=== PATIENT | female | born 1975 | race American Indian/Alaskan Native ===

== ENCOUNTER 2017-03-12 08:23 | Inpatient (IN) | payer BC ==
[2017-03-12 09:30] LABS: Basophils % (Auto) 1.2 % (0.0-1.8); Eosinophils % (Auto) 4.4 % (0.0-4.3); Hematocrit 26.1 % (30.3-42.9); Hemoglobin 7.9 gm/dl (10.1-14.3); Mean Corpuscular HGB Conc 30 % (30-34); Platelet Count 304 K/mm3 (140-440); Red Blood Count 3.99 M/mm3 (3.65-5.03); White Blood Count 6.3 K/mm3 (4.5-11.0)
[2017-03-12 09:40] LABS: Mean Corpuscular Hemoglobin 20 pg (28-32); Mean Corpuscular Volume 65 fl (79-97)
[2017-03-12 10:02] LABS: Anion Gap 21 mmol/L; BUN/Creatinine Ratio 26; Blood Urea Nitrogen 13 mg/dL (7-17); Calcium 9.6 mg/dL (8.4-10.2); Carbon Dioxide 23 mmol/L (22-30); Chloride 103.7 mmol/L (98-107); Glucose 87 mg/dL (65-100); Sodium 144 mmol/L (137-145)
[2017-03-12 10:06] LABS: Bacteria,Urine 1+ /HPF (Negative); Bilirubin,Urine NEG (Negative); Blood,Urine NEG (Negative); Ketones,Urine 20 mg/dL (Negative); Leukocyte Esterase,Urine LG (Negative); Mucus,Urine 3+ /HPF; Nitrite,Urine NEG (Negative)
[2017-03-12] MEDS ORDERED: TYLENOL PO ONE (10:38)
[2017-03-12] MEDS ORDERED: REGLAN IV ONE (10:38)
[2017-03-12] MEDS ORDERED: BENADRYL IV ONE (10:38)
--- NOTE | 2017-03-12 10:40 | Emergency Department Report ---
ED General Adult HPI - General Chief complaint: Chest Pain Stated complaint: CHEST PAIN/LEFT SIDE NUMBNESS Time Seen by Provider: 03/12/17 10:08 Source: patient, RN notes reviewed, old records reviewed Mode of arrival: Ambulatory Limitations: No Limitations - History of Present Illness Initial comments: This is a 41-year-old female. The patient presents to the ER with 2 complaints. Her first complaint is left-sided chest pain. Chest pain does not radiate to the back, arms or neck. There is no shortness of breath, vomiting or diaphoresis. The chest pain has been present since yesterday. It does not have exacerbating or relieving factors. No DVT or pulmonary embolus risk factors. Next complaint is left-sided numbness. It is in the left arm, left body, left leg. It is painless. It started yesterday. It is constant. It does not radiate anywhere. He does not have exacerbating or relieving factors. -: Gradual Location: chest, left, upper extremity, lower extremity Severity scale (0 -10): 7 Quality: aching (chest pain is aching) Consistency: constant Improves with: none Worsens with: none Associated Symptoms: chest pain. denies: confusion, cough, diaphoresis, fever/ chills, loss of appetite, malaise, nausea/vomiting, rash, seizure, shortness of breath, syncope, weakness - Related Data Previous Rx's Medication Instructions Recorded Last Taken Type Ferrous Sulfate [Iron] 325 mg PO BID #60 tablet 01/22/17 Unknown Rx Sulfamethoxazole/Trimethoprim 1 each PO Q12H #6 tablet 01/22/17 Unknown Rx [Bactrim 400-80 mg Tablet] Allergies Allergy/AdvReac Type Severity Reaction Status Date / Time hydrocodone Allergy PASS OUT Verified 02/13/15 14:07 ED Review of Systems ROS: Stated complaint: CHEST PAIN/LEFT SIDE NUMBNESS Other details as noted in HPI Constitutional: malaise. denies: fever Eyes: denies: vision change ENT: congestion Respiratory: denies: shortness of breath Cardiovascular: chest pain Gastrointestinal: denies: vomiting Genitourinary: as per HPI Musculoskeletal: denies: back pain Neurological: weakness, numbness, paresthesias Psychiatric: as per HPI ED Past Medical Hx - Past Medical History Hx Hypertension: No Hx Heart Attack/AMI: No Hx Congestive Heart Failure: No Hx Diabetes: No Hx Deep Vein Thrombosis: No Hx Pulmonary Embolism: No Hx Liver Disease: No Hx Renal Disease: No Hx Sickle Cell Disease: No Hx Arthritis: No Hx Headaches / Migraines: Yes Hx Seizures: No Hx Kidney Stones: No Hx Asthma: No Hx COPD: No Hx Tuberculosis: No Hx Dementia: No Hx HIV: No Additional medical history: VERTIGO - Surgical History Hx Coronary Stent: No Hx Pacemaker: No Hx Internal Defibrillator: No Additional Surgical History: UMBILICAL HERNIA REPAIR - Social History Smoking Status: Never Smoker Substance Use Type: Alcohol - Medications Home Medications: Home Medications Medication Instructions Recorded Confirmed Last Taken Type Ferrous Sulfate [Iron] 325 mg PO BID #60 tablet 01/22/17 Unknown Rx Sulfamethoxazole/Trimethoprim 1 each PO Q12H #6 tablet 01/22/17 Unknown Rx [Bactrim 400-80 mg Tablet] ED Physical Exam - General Limitations: No Limitations General appearance: alert, in no apparent distress - Head Head exam: Present: atraumatic, normocephalic - Eye Eye exam: Present: normal appearance, PERRL, EOMI, other (visual acuity intact to finger counting, color perception, reading at a close distance). Absent: nystagmus - ENT ENT exam: Present: normal exam, normal orophraynx, mucous membranes moist, normal external ear exam - Neck Neck exam: Present: normal inspection, full ROM - Respiratory Respiratory exam: Present: normal lung sounds bilaterally. Absent: respiratory distress, chest wall tenderness - Cardiovascular Cardiovascular Exam: Present: regular rate, normal rhythm, normal heart sounds. Absent: systolic murmur, diastolic murmur, rubs, gallop - GI/Abdominal GI/Abdominal exam: Present: soft, normal bowel sounds. Absent: distended, tenderness, guarding, rebound, rigid, pulsatile mass - Extremities Exam Extremities exam: Present: normal inspection, full ROM, normal capillary refill. Absent: pedal edema, joint swelling - Back Exam Back exam: Present: normal inspection, full ROM. Absent: tenderness, CVA tenderness (R), paraspinal tenderness, vertebral tenderness - Neurological Exam Neurological exam: Present: alert, oriented X3, CN II-XII intact, normal gait, motor sensory deficit (there is decreased sensation to light touch and pain in the left upper extremity, left lower extremity), other (55 strength upper and lower extremities bilaterally. Sensation intact to light touch right upper, right lower extremity) - Psychiatric Psychiatric exam: Present: normal affect, normal mood - Skin Skin exam: Present: warm, dry, intact, normal color. Absent: rash ED Course Vital Signs 03/12/17 03/12/17 08:49 10:30 Temperature 97.9 F Pulse Rate 84 Respiratory 20 16 Rate Blood Pressure 116/68 O2 Sat by Pulse 100 Oximetry - Reevaluation(s) Reevaluation #1: 03/12/17 13:07 Patient's old medical records reviewed, the anemia appears to be chronic, and she does not require an emergent packed red blood cell transfusion. The patient does not endorse any urinary symptoms to me, therefore she does not require antibiotic therapy at this time. Sterile pyuria is reviewed and appreciated, may be asymptomatic bacteriuria. ED Medical Decision Making - Lab Data Result diagrams: 03/12/17 09:03 03/12/17 09:03 Vital Signs 03/12/17 03/12/17 08:49 10:30 Temperature 97.9 F Pulse Rate 84 Respiratory 20 16 Rate Blood Pressure 116/68 O2 Sat by Pulse 100 Oximetry Lab Results 03/12/17 03/12/17 03/12/17 Range/Units 09:03 09:03 09:25 WBC 6.3 (4.5-11.0) K/mm3 RBC 3.99 (3.65-5.03) M/mm3 Hgb 7.9 L (10.1-14.3) gm/dl Hct 26.1 L (30.3-42.9) % MCV 65 L (79-97) fl MCH 20 L (28-32) pg MCHC 30 (30-34) % RDW 19.0 H (13.2-15.2) % Plt Count 304 (140-440) K/mm3 Lymph % (Auto) 29.8 (13.4-35.0) % [place] % (Auto) 7.2 (0.0-7.3) % Eos % (Auto) 4.4 H (0.0-4.3) % Baso % (Auto) 1.2 (0.0-1.8) % Lymph # 1.9 (1.2-5.4) K/mm3 [place] # 0.4 (0.0-0.8) K/mm3 Eos # 0.3 (0.0-0.4) K/mm3 Baso # 0.1 (0.0-0.1) K/mm3 Seg Neutrophils % 57.4 (40.0-70.0) % Seg Neutrophils # 3.6 (1.8-7.7) K/mm3 Sodium 144 (137-145) mmol/L Potassium 4.0 (3.6-5.0) mmol/L Chloride 103.7 (98-107) mmol/L Carbon Dioxide 23 (22-30) mmol/L Anion Gap 21 mmol/L BUN 13 (7-17) mg/dL Creatinine 0.5 L (0.7-1.2) mg/dL Estimated GFR > 60 ml/min BUN/Creatinine Ratio 26 % Glucose 87 (65-100) mg/dL Calcium 9.6 (8.4-10.2) mg/dL Troponin T < 0.010 (0.00-0.029) ng/mL Urine Color Yellow (Yellow) Urine Turbidity Clear (Clear) Urine pH 6.0 (5.0-7.0) Ur Specific [place] 1.028 (1.003-1.030) Urine Protein 30 mg/dl (Negative) mg/dL Urine Glucose (UA) Neg (Negative) mg/dL Urine Ketones 20 (Negative) mg/dL Urine Blood Neg (Negative) Urine Nitrite Neg (Negative) Urine Bilirubin Neg (Negative) Urine Urobilinogen 4.0 (<2.0) mg/dL Ur Leukocyte Esterase Lg (Negative) Urine WBC (Auto) 43.0 H (0.0-6.0) /HPF Urine RBC (Auto) 21.0 (0.0-6.0) /HPF U Epithel Cells (Auto) 2.0 (0-13.0) /HPF Urine Bacteria (Auto) 1+ (Negative) /HPF Urine Mucus 3+ /HPF Urine HCG, Qual (Negative) 03/12/17 03/12/17 Range/Units 10:38 11:54 WBC (4.5-11.0) K/mm3 RBC (3.65-5.03) M/mm3 Hgb (10.1-14.3) gm/dl Hct (30.3-42.9) % MCV (79-97) fl MCH (28-32) pg MCHC (30-34) % RDW (13.2-15.2) % Plt Count (140-440) K/mm3 Lymph % (Auto) (13.4-35.0) % [place] % (Auto) (0.0-7.3) % Eos % (Auto) (0.0-4.3) % Baso % (Auto) (0.0-1.8) % Lymph # (1.2-5.4) K/mm3 [place] # (0.0-0.8) K/mm3 Eos # (0.0-0.4) K/mm3 Baso # (0.0-0.1) K/mm3 Seg Neutrophils % (40.0-70.0) % Seg Neutrophils # (1.8-7.7) K/mm3 Sodium (137-145) mmol/L Potassium (3.6-5.0) mmol/L Chloride (98-107) mmol/L Carbon Dioxide (22-30) mmol/L Anion Gap mmol/L BUN (7-17) mg/dL Creatinine (0.7-1.2) mg/dL Estimated GFR ml/min BUN/Creatinine Ratio % Glucose (65-100) mg/dL Calcium (8.4-10.2) mg/dL Troponin T < 0.010 (0.00-0.029) ng/mL Urine Color (Yellow) Urine Turbidity (Clear) Urine pH (5.0-7.0) Ur Specific [place] (1.003-1.030) Urine Protein (Negative) mg/dL Urine Glucose (UA) (Negative) mg/dL Urine Ketones (Negative) mg/dL Urine Blood (Negative) Urine Nitrite (Negative) Urine Bilirubin (Negative) Urine Urobilinogen (<2.0) mg/dL Ur Leukocyte Esterase (Negative) Urine WBC (Auto) (0.0-6.0) /HPF Urine RBC (Auto) (0.0-6.0) /HPF U Epithel Cells (Auto) (0-13.0) /HPF Urine Bacteria (Auto) (Negative) /HPF Urine Mucus /HPF Urine HCG, Qual Negative (Negative) - EKG Data -: EKG Interpreted by Fl - EKG Data 03/12/17 13:04 Sinus, 71 bpm, normal intervals, normal axis, not morphologically consistent with ST elevation myocardial infarction; appears unchanged from prior EKG from December 2016. - Radiology Data Radiology results: report reviewed, image reviewed CT scan of the chest, CT scan of the brain, interpreted by radiology: Negative for acute intracranial findings, negative for pulmonary embolus, negative for dissection - Medical Decision Making Differential diagnosis, including but not limited to: Aortic dissection, pulmonary embolus, acute coronary syndrome, radiculopathy, stroke, conversion disorder Assessment and plan: 41-year-old female with 2 complaints. Chest pain atypical, troponin negative 2, CT scan of the chest is negative for pulmonary embolus, negative for aortic catastrophe/dissection. Patient has an NIH score of 1, symptoms have her present since yesterday, therefore she is not a TPA candidate. Given all of her findings and complaints are sensory in nature , I did not put the patient requires emergent CT angiogram of the head and neck , especially as she required a CT scan of the chest to exclude aortic catastrophe given her complaint of chest pain and neurologic symptoms. Patient walked into the ER in no distress, had equal pulses in the bilateral upper and lower extremities, and was very well-appearing. Her headache was treated with appropriate medication, and patient will be admitted for further inpatient evaluation and workup for her chest pain and neurologic symptoms. The case was presented to the Hospital physician, Dr. Callaway, who accepted the patient to the medical service for the aforementioned. Critical care attestation.: If time is entered above; I have spent that time in minutes in the direct care of this critically ill patient, excluding procedure time. ED Disposition Clinical Impression: Chest pain, Left sided numbness Disposition: OP ADMIT IP TO THIS HOSP Is pt being admited?: Yes Does the pt Need Aspirin: Yes Condition: Good Instructions: Chest Pain (ED) Referrals: PRIMARY CARE, [Primary Care Provider] - 3-5 Days
[2017-03-12] MEDS ORDERED: NACL ONE (10:46)
--- NOTE | 2017-03-12 11:48 | Cat Scan Report ---
CT HEAD WITHOUT CONTRAST: 03/12/17 08:23:00 CLINICAL: Headache and dizziness with left-sided numbness. TECHNIQUE: 2.5-mm noncontrast scans. COMPARISON:01/19/17 FINDINGS: The ventricles are normal but the frontal lobe sulci and temporal lobe sulci are large for age. However, this is not changed since the last exam. No abnormal density. No mass or mass effect. No hemorrhage, edema or extra-axial collection. Stable pansinusitis with near-complete opacification of the sinuses. Normal orbits and soft tissues. The calvarium and skull base are intact. IMPRESSION: Pansinusitis. No evidence of acute/subacute infarct or hemorrhage. Mild cortical atrophy.
--- NOTE | 2017-03-12 11:50 | Cat Scan Report ---
CT CHEST WITH CONTRAST: 03/12/17 10:38:00 CLINICAL: Chest pain and neurologic symptoms. TECHNIQUE: PE protocol with volumetric acquisition and 1.25 mm scan reconstructions after the uneventful intravenous injection of 100 cc Omnipaque 350. Consent was obtained prior to the administration of contrast. FINDINGS: Good opacification of the pulmonary arteries and no pulmonary artery thrombus identified. Normal heart and aorta. The lungs are normally expanded and clear. No airspace disease or pleural effusion. Normal thyroid, trachea and esophagus. The upper abdomen is normal. The bones and soft tissues are normal. IMPRESSION: Normal study. No pulmonary embolus.
[2017-03-12] MEDS ORDERED: BABY ASPIRIN PO ONE (13:06)
--- NOTE | 2017-03-12 23:42 | History and Physical Report ---
History of Present Illness Date of examination: 03/12/17 Date of admission: 03/12/17 15:05 Chief complaint: CC L chest pain and L side numbness History of present illness: History of Present Illness This is a 41-year-old female presents to the ER for left-sided chest pain. Chest pain does not radiate to the back, arms or neck. There is no shortness of breath, vomiting or diaphoresis. The chest pain has been present since yesterday. It does not have exacerbating or relieving factors. No DVT or pulmonary embolus risk factors. Also c/0 left-sided numbness. It is in the left arm, left body, left leg. It is painless. It started yesterday. It is constant. It does not radiate anywhere. Does not have exacerbating or relieving factors. -: Gradual Location: chest, left, upper extremity, lower extremity Severity scale (0 -10): 7 Quality: aching (chest pain is aching) Consistency: constant Improves with: none Worsens with: none Associated Symptoms: chest pain. denies: confusion, cough, diaphoresis, fever/ chills, loss of appetite, malaise, nausea/vomiting, rash, seizure, shortness of breath, syncope, weakness Past Medical History Hx Headaches / Migraines: Yes Additional medical history: VERTIGO Surgical History UMBILICAL HERNIA REPAIR Social History Smoking Status: Never Smoker Substance Use Type: Alcohol Fam Hx Htn Medications Home Medications: Home Medications Medication Instructions Recorded Confirmed Last Taken Type Ferrous Sulfate [Iron] 325 mg PO BID #60 tablet 01/22/17 Unknown Rx Sulfamethoxazole/Trimethoprim 1 each PO Q12H #6 tablet 01/22/17 Unknown Rx [Bactrim 400-80 mg Tablet] Review of Systems Stated complaint: CHEST PAIN/LEFT SIDE NUMBNESS Other details as noted in HPI Constitutional: malaise. denies: fever Eyes: denies: vision change ENT: congestion Respiratory: denies: shortness of breath Cardiovascular: chest pain Gastrointestinal: denies: vomiting Genitourinary: as per HPI Musculoskeletal: denies: back pain Neurological: weakness, numbness, paresthesias Psychiatric: as per HPI Medications and Allergies Allergies Allergy/AdvReac Type Severity Reaction Status Date / Time hydrocodone Allergy PASS OUT Verified 02/13/15 14:07 Home Medications Medication Instructions Recorded Confirmed Last Taken Type No Known Home Medications [No 03/12/17 03/12/17 Unknown History Reported Home Medications] Exam - Constitutional Vitals: Temp Pulse Resp BP Pulse Ox 97.9 F 127 H 18 97/59 68 L 03/12/17 20:22 03/12/17 20:22 03/12/17 22:00 03/12/17 20:22 03/12/17 20:22 General appearance: Present: no acute distress, well-nourished - EENT Eyes: Present: PERRL ENT: hearing intact, clear oral mucosa - Neck Neck: Present: supple, normal ROM - Respiratory Respiratory effort: normal Respiratory: bilateral: CTA - Cardiovascular Heart rate: 80 Rhythm: regular Heart Sounds: Present: S1 & S2. Absent: rub, click - Extremities Extremities: no ischemia, pulses intact, pulses symmetrical, No edema Peripheral Pulses: within normal limits - Abdominal General gastrointestinal: Present: soft, non-tender, non-distended, normal bowel sounds Female genitourinary: Present: normal - Rectal Rectal Exam: deferred - Integumentary Integumentary: Present: clear, warm, dry - Musculoskeletal Musculoskeletal: gait normal, strength equal bilaterally - Psychiatric Psychiatric: appropriate mood/affect, intact judgment & insight - Neurologic Neurologic: CNII-XII intact, moves all extremities, other (No focal deficits) Results - Labs CBC & Chem 7: 03/12/17 09:03 03/12/17 09:03 Labs: Laboratory Last Values WBC 6.3 K/mm3 (4.5-11.0) 03/12/17 09:03 RBC 3.99 M/mm3 (3.65-5.03) 03/12/17 09:03 Hgb 7.9 gm/dl (10.1-14.3) L 03/12/17 09:03 Hct 26.1 % (30.3-42.9) L 03/12/17 09:03 MCV 65 fl (79-97) L 03/12/17 09:03 MCH 20 pg (28-32) L 03/12/17 09:03 MCHC 30 % (30-34) 03/12/17 09:03 RDW 19.0 % (13.2-15.2) H 03/12/17 09:03 Plt Count 304 K/mm3 (140-440) 03/12/17 09:03 Lymph % (Auto) 29.8 % (13.4-35.0) 03/12/17 09:03 [place] % (Auto) 7.2 % (0.0-7.3) 03/12/17 09:03 Eos % (Auto) 4.4 % (0.0-4.3) H 03/12/17 09:03 Baso % (Auto) 1.2 % (0.0-1.8) 03/12/17 09:03 Lymph # 1.9 K/mm3 (1.2-5.4) 03/12/17 09:03 [place] # 0.4 K/mm3 (0.0-0.8) 03/12/17 09:03 Eos # 0.3 K/mm3 (0.0-0.4) 03/12/17 09:03 Baso # 0.1 K/mm3 (0.0-0.1) 03/12/17 09:03 Seg Neutrophils % 57.4 % (40.0-70.0) 03/12/17 09:03 Seg Neutrophils # 3.6 K/mm3 (1.8-7.7) 03/12/17 09:03 Sodium 144 mmol/L (137-145) 03/12/17 09:03 Potassium 4.0 mmol/L (3.6-5.0) 03/12/17 09:03 Chloride 103.7 mmol/L (98-107) 03/12/17 09:03 Carbon Dioxide 23 mmol/L (22-30) 03/12/17 09:03 Anion Gap 21 mmol/L 03/12/17 09:03 BUN 13 mg/dL (7-17) 03/12/17 09:03 Creatinine 0.5 mg/dL (0.7-1.2) L 03/12/17 09:03 Estimated GFR > 60 ml/min 03/12/17 09:03 BUN/Creatinine Ratio 26 % 03/12/17 09:03 Glucose 87 mg/dL (65-100) 03/12/17 09:03 Calcium 9.6 mg/dL (8.4-10.2) 03/12/17 09:03 Troponin T < 0.010 ng/mL (0.00-0.029) 03/12/17 14:25 Urine Color Yellow (Yellow) 03/12/17 09:25 Urine Turbidity Clear (Clear) 03/12/17 09:25 Urine pH 6.0 (5.0-7.0) 03/12/17 09:25 Ur Specific [place] 1.028 (1.003-1.030) 03/12/17 09:25 Urine Protein 30 mg/dl mg/dL (Negative) 03/12/17 09:25 Urine Glucose (UA) Neg mg/dL (Negative) 03/12/17 09:25 Urine Ketones 20 mg/dL (Negative) 03/12/17 09:25 Urine Blood Neg (Negative) 03/12/17 09:25 Urine Nitrite Neg (Negative) 03/12/17 09:25 Urine Bilirubin Neg (Negative) 03/12/17 09:25 Urine Urobilinogen 4.0 mg/dL (<2.0) 03/12/17 09:25 Ur Leukocyte Esterase Lg (Negative) 03/12/17 09:25 Urine WBC (Auto) 43.0 /HPF (0.0-6.0) H 03/12/17 09:25 Urine RBC (Auto) 21.0 /HPF (0.0-6.0) 03/12/17 09:25 U Epithel Cells (Auto) 2.0 /HPF (0-13.0) 03/12/17 09:25 Urine Bacteria (Auto) 1+ /HPF (Negative) 03/12/17 09:25 Urine Mucus 3+ /HPF 03/12/17 09:25 Urine HCG, Qual Negative (Negative) 03/12/17 10:38 Short CBC 03/12/17 Range/Units 09:03 WBC 6.3 (4.5-11.0) K/mm3 Hgb 7.9 L (10.1-14.3) gm/dl Hct 26.1 L (30.3-42.9) % Plt Count 304 (140-440) K/mm3 BMP 03/12/17 09:03 Sodium 144 Potassium 4.0 Chloride 103.7 Carbon Dioxide 23 BUN 13 Creatinine 0.5 L Glucose 87 Calcium 9.6 Cardiac Enzymes 03/12/17 03/12/17 03/12/17 Range/Units 09:03 11:54 14:25 Troponin T < 0.010 < 0.010 < 0.010 (0.00-0.029) ng/mL Urine 03/12/17 Range/Units 09:25 Urine Color Yellow (Yellow) Urine pH 6.0 (5.0-7.0) Ur Specific [place] 1.028 (1.003-1.030) Urine Protein 30 mg/dl (Negative) mg/dL Urine Glucose (UA) Neg (Negative) mg/dL - Imaging and Cardiology EKG: report reviewed (Nsr 66/min) CT scan - chest: report reviewed (NAF) CT Scan - head: report reviewed (Pansinusitis) Assessment and Plan Advance Directives: Yes (Full code) VTE prophylaxis?: Chemical Plan of care discussed with patient/family: Yes - Patient Problems (1) Chest pain Current Visit: Yes Status: Acute Qualifiers: Chest pain type: unspecified Qualified Code(s): R07.9 - Chest pain, unspecified Plan to address problem: Chest pain w/u SerialCardiac enzymes and Lexiscan (2) TIA (transient ischemic attack) Current Visit: Yes Status: Acute Qualifiers: Transient cerebral ischemia type: unspecified Qualified Code(s): G45.9 - Transient cerebral ischemic attack, unspecified Plan to address problem: More in favor of conversion disorder In view of Anemia she maybe having CP and Numbness Bur will get MRI/MRA Echo and CDS (3) UTI (urinary tract infection) Current Visit: No Status: Acute Qualifiers: Urinary tract infection type: acute cystitis Plan to address problem: Started von Rocephin. May transition to po abx at discharge time (4) Anemia Current Visit: Yes Status: Chronic Qualifiers: Anemia type: iron deficiency Iron deficiency anemia type: chronic blood loss Qualified Code(s): D50.0 - Iron deficiency anemia secondary to blood loss (chronic) Plan to address problem: Suspect Menorrhagia Check iron levels (5) DVT prophylaxis Current Visit: No Status: Acute
[2017-03-13] MEDS ORDERED: SODIUM CHLORIDE FLUSH SYRINGE 10 ML IV PRN (07:28)
[2017-03-13] MEDS ORDERED: cefTRIAXone 1 GM in NACL 0.9% 20 ML IV SCH (10:00)
[2017-03-13] MEDS ORDERED: LEXISCAN IV ONE ×2 (10:32→11:06)
--- NOTE | 2017-03-13 11:27 | Consultation ---
History of Present Illness Consult date: 03/13/17 Consult reason: chest pain History of present illness: Patient is being admitted for atypical chest pain, near syncope and left sided numbness. MPI today is revealing a small reversible anteroseptal wall defect. Patient has no CAD risk factors. ECG is normal; although after lexiscan she developed deep T wave inversions in the precordial leads without chest pain. Past History Past Medical History: anemia Past Surgical History: hernia repair Social history: alcohol abuse Family history: no significant family history Medications and Allergies Allergies Allergy/AdvReac Type Severity Reaction Status Date / Time hydrocodone Allergy PASS OUT Verified 02/13/15 14:07 Home Medications Medication Instructions Recorded Confirmed Last Taken Type No Known Home Medications [No 03/12/17 03/12/17 Unknown History Reported Home Medications] Active Meds: Active Medications Ceftriaxone Sodium 1 gm/ (Sodium Chloride) 20 mls @ 20 mls/10 min IV Q24HR HARRY Sodium Chloride (Sodium Chloride Flush Syringe 10 Ml) 10 ml IV PRN PRN PRN Reason: LINE FLUSH Review of Systems All systems: negative Physical Examination Vital Signs Temp Pulse Resp BP Pulse Ox 97.9 F 84 20 116/68 100 03/12/17 08:49 03/12/17 08:49 03/12/17 08:49 03/12/17 08:49 03/12/17 08:49 General appearance: no acute distress HEENT: Positive: PERRL Neck: Positive: neck supple Cardiac: Positive: Reg Rate and Rhythm Lungs: Positive: Normal Exam Neuro: Positive: Grossly Intact Abdomen: Positive: Soft Extremities: Present: normal Results 03/12/17 09:03 03/12/17 09:03 - EKG Interpretation EKG: sinus rhythm EKG interpretations - Telemetry EKG Rhythm: Sinus Rhythm Assessment and Plan Atypical chest pain Normal CT chest Normal LVEF by echo 12/2016 Abnormal MPI showing a small reversible anteroseptal wall defect concerning for ischemia vs artifact Left sided numbness and near syncope CT brain normal except for cortical atrophy Chronic microcytic anemia Asymptomatic bacteriuria Recommendations: Coronary CTA in the morning to further evaluate equivocal MPI findings Start metoprolol for rate control prior to CTA
--- NOTE | 2017-03-13 12:16 | Consultation ---
History of Present Illness Consult date: 03/13/17 History of present illness: don'ty have formal report on the MRI/MRA as yet but to my review the CT of brain is normal and the MRI does NOT show acute stroke... symptoms of vertigo/ dizzy could well be from the described pansinusitis other w/u pending Past History Past Medical History: anemia Past Surgical History: hernia repair Social history: alcohol abuse Family history: no significant family history Medications and Allergies Allergies Allergy/AdvReac Type Severity Reaction Status Date / Time hydrocodone Allergy PASS OUT Verified 02/13/15 14:07 Home Medications Medication Instructions Recorded Confirmed Last Taken Type No Known Home Medications [No 03/12/17 03/12/17 Unknown History Reported Home Medications] Active Meds: Active Medications Ceftriaxone Sodium 1 gm/ (Sodium Chloride) 20 mls @ 20 mls/10 min IV Q24HR HARRY Metoprolol Tartrate (Lopressor) 25 mg PO Q8H HARRY Sodium Chloride (Sodium Chloride Flush Syringe 10 Ml) 10 ml IV PRN PRN PRN Reason: LINE FLUSH Physical Examination - Vital Signs Vital Signs: Vital Signs Temp Pulse Resp BP Pulse Ox 97.9 F 84 20 116/68 100 03/12/17 08:49 03/12/17 08:49 03/12/17 08:49 03/12/17 08:49 03/12/17 08:49 Results - Laboratory Findings CBC and BMP: 03/12/17 09:03 03/12/17 09:03 Abnormal Lab Findings: Abnormal Labs 03/12/17 03/12/17 03/12/17 09:03 09:03 09:25 Hgb 7.9 L Hct 26.1 L MCV 65 L MCH 20 L RDW 19.0 H Eos % (Auto) 4.4 H Creatinine 0.5 L Iron Urine WBC (Auto) 43.0 H 03/13/17 09:05 Hgb Hct MCV MCH RDW Eos % (Auto) Creatinine Iron 9 L Urine WBC (Auto)
[2017-03-13] MEDS: LOPRESSOR PO SCH ×2 (13:00→21:59)
--- NOTE | 2017-03-13 13:00 | Magnetic Resonance Report ---
MRI BRAIN WITHOUT CONTRAST: 03/12/17 15:05:00 CLINICAL: Stroke. TECHNIQUE: Axial diffusion, T1, T2, FLAIR, gradient echo T2*, and sagittal T1 sequences on a 1.5 Marie magnet. FINDINGS: The ventricles are normal but the frontal lobe sulci and temporal lobe sulci are large for age. No abnormal signal and no restricted diffusion. No mass or mass effect. No hemorrhage, edema or extra-axial collection. Normal pituitary and optic chiasm. The brainstem and cerebellum are normal. Intact vascular flow voids. And sinusitis with complete opacification of bilateral frontal, ethmoid and maxillary sinuses. Partial opacification of sphenoid sinuses. Pronounced mucoperiosteal thickening of the sinuses and no air-fluid levels. The orbits, and soft tissues are normal. Normal calvarium and skull base. IMPRESSION: Severe pansinusitis. No evidence of acute/subacute infarct or hemorrhage.
[2017-03-13] MEDS: cefTRIAXone 1 GM in NACL 0.9% 20 ML IV SCH (13:01)
--- NOTE | 2017-03-13 13:01 | Magnetic Resonance Report ---
MRA HEAD WITHOUT CONTRAST: 03/13/17 CLINICAL: Stroke. TECHNIQUE: Axial 3-D [id number] MR angiography of the [place] of [place] with review of axial source images. FINDINGS: Intact [place] of [place] with no aneurysm, stenosis or occlusion. Symmetric blood flow in the anterior, middle and posterior cerebral arteries. Normal basilar and vertebral arteries. IMPRESSION: Normal study.
--- NOTE | 2017-03-13 19:37 | Progress Note ---
Assessment and Plan Assessment and plan: --Acute coronary syndrome: abnormal stress test, cardiology recommended left heart catheterization Cardiology consultation for further evaluation and management, Continue aspirin and beta blockers JETT inhibitor as nitrates and statins --Neurological symptom; possible TIA Neuro workup is negative so far, , MRI brain; severe pansinusitis, no acute abnormality noted MRA brain; normal study, Carotid Doppler; less than 50% stenosis, CT head without contrast; pansinusitis, no acute abnormality neurology evaluation noted and appreciated, Physical therapy and occupational therapy as needed --Chest pain; abnormal stress test, cardiology evaluation Possible heart cath tomorrow, CTA chest is negative for PE --Anemia; probably iron deficiency, closely monitor H&H and transfuse as needed Iron supplements as needed --Urinary tract infection; continue IV antibiotics, follow cultures --Pansinusitis: On antibiotics --DVT prophylaxis; on Lovenox Physical therapy occupational therapy as needed Plan of care discussed with patient History Interval history: Sincerely and evaluated medical records reviewed Underwent extensive neuro workup, reviewed Underwent exercise stress test; abnormal study, advised left heart catheterization tomorrow Patient feels slightly better no new complaints Hospitalist Physical - Constitutional Vitals: Temp Pulse Resp BP Pulse Ox 98.1 F 78 18 109/52 100 03/13/17 17:37 03/13/17 17:37 03/13/17 17:37 03/13/17 17:37 03/13/17 17:37 General appearance: Present: no acute distress, well-nourished - EENT Eyes: Present: PERRL, EOM intact - Neck Neck: Present: supple, normal ROM - Respiratory Respiratory effort: normal Respiratory: bilateral: diminished, negative: rales, rhonchi, wheezing - Cardiovascular Rhythm: regular Heart Sounds: Present: S1 & S2 - Extremities Extremities: no ischemia, No edema Peripheral Pulses: within normal limits - Abdominal General gastrointestinal: soft, non-tender, non-distended, normal bowel sounds - Integumentary Integumentary: Present: clear, warm - Psychiatric Psychiatric: appropriate mood/affect, cooperative - Neurologic Neurologic: CNII-XII intact, moves all extremities Results - Labs CBC & Chem 7: 03/12/17 09:03 03/12/17 09:03 Labs: Laboratory Last Values WBC 6.3 K/mm3 (4.5-11.0) 03/12/17 09:03 RBC 3.99 M/mm3 (3.65-5.03) 03/12/17 09:03 Hgb 7.9 gm/dl (10.1-14.3) L 03/12/17 09:03 Hct 26.1 % (30.3-42.9) L 03/12/17 09:03 MCV 65 fl (79-97) L 03/12/17 09:03 MCH 20 pg (28-32) L 03/12/17 09:03 MCHC 30 % (30-34) 03/12/17 09:03 RDW 19.0 % (13.2-15.2) H 03/12/17 09:03 Plt Count 304 K/mm3 (140-440) 03/12/17 09:03 Lymph % (Auto) 29.8 % (13.4-35.0) 03/12/17 09:03 [place] % (Auto) 7.2 % (0.0-7.3) 03/12/17 09:03 Eos % (Auto) 4.4 % (0.0-4.3) H 03/12/17 09:03 Baso % (Auto) 1.2 % (0.0-1.8) 03/12/17 09:03 Lymph # 1.9 K/mm3 (1.2-5.4) 03/12/17 09:03 [place] # 0.4 K/mm3 (0.0-0.8) 03/12/17 09:03 Eos # 0.3 K/mm3 (0.0-0.4) 03/12/17 09:03 Baso # 0.1 K/mm3 (0.0-0.1) 03/12/17 09:03 Seg Neutrophils % 57.4 % (40.0-70.0) 03/12/17 09:03 Seg Neutrophils # 3.6 K/mm3 (1.8-7.7) 03/12/17 09:03 Sodium 144 mmol/L (137-145) 03/12/17 09:03 Potassium 4.0 mmol/L (3.6-5.0) 03/12/17 09:03 Chloride 103.7 mmol/L (98-107) 03/12/17 09:03 Carbon Dioxide 23 mmol/L (22-30) 03/12/17 09:03 Anion Gap 21 mmol/L 03/12/17 09:03 BUN 13 mg/dL (7-17) 03/12/17 09:03 Creatinine 0.5 mg/dL (0.7-1.2) L 03/12/17 09:03 Estimated GFR > 60 ml/min 03/12/17 09:03 BUN/Creatinine Ratio 26 % 03/12/17 09:03 Glucose 87 mg/dL (65-100) 03/12/17 09:03 Calcium 9.6 mg/dL (8.4-10.2) 03/12/17 09:03 Iron 9 ug/dL (37-170) L 03/13/17 09:05 TIBC 363 mcg/dL (250-450) 03/13/17 09:05 % Saturation 2.48 % 03/13/17 09:05 Transferrin 308 mg/dl (192-382) 03/13/17 09:05 Troponin T < 0.010 ng/mL (0.00-0.029) 03/12/17 14:25 Vitamin B12 564.2 pg/mL (211-911) 03/13/17 09:05 Urine Color Yellow (Yellow) 03/12/17 09:25 Urine Turbidity Clear (Clear) 03/12/17 09:25 Urine pH 6.0 (5.0-7.0) 03/12/17 09:25 Ur Specific [place] 1.028 (1.003-1.030) 03/12/17 09:25 Urine Protein 30 mg/dl mg/dL (Negative) 03/12/17 09:25 Urine Glucose (UA) Neg mg/dL (Negative) 03/12/17 09:25 Urine Ketones 20 mg/dL (Negative) 03/12/17 09:25 Urine Blood Neg (Negative) 03/12/17 09:25 Urine Nitrite Neg (Negative) 03/12/17 09:25 Urine Bilirubin Neg (Negative) 03/12/17 09:25 Urine Urobilinogen 4.0 mg/dL (<2.0) 03/12/17 09:25 Ur Leukocyte Esterase Lg (Negative) 03/12/17 09:25 Urine WBC (Auto) 43.0 /HPF (0.0-6.0) H 03/12/17 09:25 Urine RBC (Auto) 21.0 /HPF (0.0-6.0) 03/12/17 09:25 U Epithel Cells (Auto) 2.0 /HPF (0-13.0) 03/12/17 09:25 Urine Bacteria (Auto) 1+ /HPF (Negative) 03/12/17 09:25 Urine Mucus 3+ /HPF 03/12/17 09:25 Urine HCG, Qual Negative (Negative) 03/12/17 10:38
--- NOTE | 2017-03-13 22:36 | Treadmill Report ---
INDICATION: Chest pain. ORDERING PHYSICIAN: nAgela Callaway MD FINDINGS: There is evidence of a small to moderate size mildly reversible anteroseptal wall defect suggesting ischemia in the LAD distribution. Normal left ventricular size and systolic function with an ejection fraction measured at 75%. Normal wall motion and wall thickening. CONCLUSION: Abnormal myocardial perfusion scan revealing a small to moderate size, mildly reversible anteroseptal wall defect concerning for ischemia in LAD distribution. Clinical correlation is recommended. JOB# [id number] PAHNI/NTS
[2017-03-14] MEDS: LOPRESSOR PO SCH ×2 (04:43→12:56)
[2017-03-14] MEDS ORDERED: LOPRESSOR PO ONE ×2 (09:00)
[2017-03-14] MEDS: cefTRIAXone 1 GM in NACL 0.9% 20 ML IV SCH (10:19)
[2017-03-14] MEDS ORDERED: NACL ONE (11:24)
[2017-03-14] MEDS ORDERED: NITROSTAT SL ONE ×2 (11:30→11:36)
[2017-03-14] MEDS ORDERED: LOPRESSOR IV ONE (12:00)
[2017-03-14 12:06] VITALS: BP 97/46
--- NOTE | 2017-03-14 13:05 | Progress Note ---
Assessment and Plan Atypical chest pain Normal CT chest Normal LVEF by echo 12/2016 Abnormal MPI showing a small reversible anteroseptal wall defect concerning for ischemia vs artifact Normal coronary CTA Left sided numbness and near syncope CT brain normal except for cortical atrophy Chronic microcytic anemia Asymptomatic bacteriuria Recommendations: No further cardiac work-up is needed May go home cardiac cortes Subjective Date of service: 03/14/17 Principal diagnosis: Chest Pain Interval history: Patient underwent a coronary CTA this morning Objective Vital Signs Temp Pulse Pulse Pulse Pulse Resp Resp 03/14/17 12:05 72 03/14/17 12:01 73 14 03/14/17 11:57 68 12 03/14/17 11:50 62 62 14 03/14/17 08:55 79 03/14/17 07:14 98.0 F 79 18 03/14/17 04:12 97.8 F 83 18 03/13/17 23:22 97.8 F 72 18 03/13/17 19:45 97.5 F L 73 18 03/13/17 19:10 78 03/13/17 17:37 98.1 F 78 18 03/13/17 13:17 80 16 Resp BP BP BP Pulse Ox Pulse Ox Pulse Ox 03/14/17 12:05 16 97/46 99 03/14/17 12:01 84/46 100 03/14/17 11:57 100/60 100 03/14/17 11:50 96/53 100 03/14/17 08:55 108/69 03/14/17 07:14 108/69 100 03/14/17 04:12 96/53 100 03/13/17 23:22 100/58 100 03/13/17 19:45 100/54 99 03/13/17 19:10 03/13/17 17:37 109/52 100 03/13/17 13:17 - Physical Examination HEENT: Positive: PERRL Neck: Positive: neck supple Cardiac: Positive: Reg Rate and Rhythm Lungs: Positive: Normal Exam Neuro: Positive: Grossly Intact Abdomen: Positive: Soft Extremities: Present: normal - Labs and Meds Lipids 03/14/17 Range/Units 06:38 Triglycerides 27 (2-149) mg/dL Cholesterol 130 (50-199) mg/dL HDL Cholesterol 70 H (40-59) mg/dL Cholesterol/HDL Ratio 1.85 % - Imaging and Cardiology EKG: report reviewed (Nsr 66/min)
--- NOTE | 2017-03-14 13:49 | Cat Scan Report ---
LIMITED CT OF THE CHEST PER CT CORONARY ANGIOGRAPHY PROTOCOL: History: Equivocal stress test. Limited CT of the chest per CT coronary angiography protocol is submitted. The cardiac portion of the exam has been previously interpreted by the [facility]. The included portions of the lungs appear clear without evidence for nodule, mass or infiltrate. The included pleural spaces are clear. No mediastinal or hilar adenopathy is evident. Included upper abdomen and solid abdominal organs are grossly within normal limits. IMPRESSION: Normal limited CT of the chest as noted.
--- NOTE | 2017-03-14 14:19 | Discharge Summary ---
Providers - Providers Date of Admission: 03/12/17 15:05 Date of discharge: 03/14/17 Attending physician: LARS CAZARES 03/13/17 Consult to Physician [CONS] Routine Consulting Provider: TERESO UGARTE Reason For Exam: CVA Place consult to:: Dr. Ugarte Notified:: Jacki ZAPATA Phone number called:: Was contact made?: Yes If yes, spoke with:: Mely service Time called:: 08:53 03/13/17 07:29 Occupational Therapy Evaluate and Treat [CONS] Routine Comment: Reason For Exam: Neuro deficits Physical Therapy Evaluation and Treat [CONS] Routine Comment: Reason For Exam: Neuro deficits 03/13/17 19:54 Consult to Physician [CONS] Routine Consulting Provider: MIRI STRAUSS Reason For Exam: abnormal stress test Place consult to:: [facility] Notified:: y Comment:: added to list Primary care physician: FITNESS AND WELLNESS COORDINATOR Hospitalization Reason for admission: Left chest pain/Lt arm numbness Condition: Good Pertinent studies: CT head CTA chest MRI MRA Coronary CTA Exercise stress test Carotid doppler Hospital course: Patient was admitted with chest pain and left sided numbness Had extensive neuro and cardiac work up as mentioned above Symptomatically managed Today pt is comfortable,no new complaints, Vitals stable Physical exam unremarkable., stable at the time of discharge. Discharge Diagnosis: --Acute coronary syndrome: abnormal stress test, Coronary CTA normal on cardiac meds --Neurological symptom; possible TIA Neuro workup is negative so far, , MRI brain; severe pansinusitis, no acute abnormality noted MRA brain; normal study, Carotid Doppler; less than 50% stenosis, CT head without contrast; pansinusitis, neurology evaluated --Chest pain; abnormal stress test, cardiology evaluated CTA chest is negative for PE --Anemia; probably iron deficiency, closely monitor H&H and transfuse as needed Iron supplements as needed --Urinary tract infection; continue IV antibiotics, follow cultures --Pansinusitis: On antibiotics Disposition: DC-01 TO HOME OR SELFCARE Time spent for discharge: 32 min Core Measure Documentation - Palliative Care Palliative Care/ Comfort Measures: Not Applicable - Core Measures Any of the following diagnoses?: none Exam - Constitutional Vitals: Temp Pulse Resp BP Pulse Ox 98.0 F 72 16 97/46 99 03/14/17 07:14 03/14/17 12:05 03/14/17 12:05 03/14/17 12:05 03/14/17 12:05 General appearance: Present: no acute distress, well-nourished - EENT Eyes: Present: PERRL, EOM intact - Neck Neck: Present: supple, normal ROM - Respiratory Respiratory effort: normal Respiratory: negative: rales, rhonchi, wheezing - Cardiovascular Rhythm: regular Heart Sounds: Present: S1 & S2 - Extremities Extremities: no ischemia, No edema Peripheral Pulses: within normal limits - Abdominal General gastrointestinal: Present: soft, non-tender, non-distended, normal bowel sounds - Integumentary Integumentary: Present: clear, warm - Musculoskeletal Musculoskeletal: strength equal bilaterally - Psychiatric Psychiatric: appropriate mood/affect, cooperative - Neurologic Neurologic: CNII-XII intact, moves all extremities Plan Activity: no restrictions Diet: regular Follow up with: PRIMARY CAREMD [Primary Care Provider] - 3-5 Days MIRI STRAUSS MD [Staff Physician] - 7 Days Prescriptions: Ferrous Sulfate [Feosol 325 MG tab] 325 mg PO BID #60 tablet
--- NOTE | 2017-03-14 15:02 | Vascular Lab Report ---
CAROTID DUPLEX STUDY: RIGHT PSVEDV CCA [id number] CCA DIST:[id number] ICA PROX:[id number] ICA MID:[id number] ICA DIST:[id number] ECA: [id number] VERT: 75 31 LEFT PSVEDV CCA PROX:[id number] CCA DIST:[id number] ICA PROX:80459 ICA MID:45189 ICA DIST:[id number] ECA: 08547 VERT: 70 21 REASON FOR EXAM: CVA with left sided numbness. COMMENTS ON THE RIGHT: Doppler frequency analysis is consistent with 16 to 49 percent diameter reduction of the internal carotid artery. Minimal amount of plaque is seen. The common carotid artery is patent. The external carotid artery is patent. The vertebral artery has antegrade flow. COMMENTS ON THE LEFT: Doppler frequency analysis is consistent with 16 to 49 percent diameter reduction of the internal carotid artery. Minimal amount of plaque is seen. The common carotid artery is patent. The external carotid artery is patent. The vertebral artery has antegrade flow. IMPRESSION: Less than 50% diameter reduction in the internal carotid arteries bilaterally. Consider repeat carotid artery duplex in 12 months.
--- NOTE | 2017-03-14 15:14 | Consultation ---
History of Present Illness Consult date: 03/14/17 History of present illness: went over the results and cleared for d/c suspect TIA's Past History Past Medical History: anemia Past Surgical History: hernia repair Social history: alcohol abuse Family history: no significant family history Medications and Allergies Allergies Allergy/AdvReac Type Severity Reaction Status Date / Time hydrocodone Allergy PASS OUT Verified 02/13/15 14:07 Home Medications Medication Instructions Recorded Confirmed Last Taken Type Ferrous Sulfate [Feosol 325 MG tab] 325 mg PO BID #60 tablet 03/14/17 Unknown Rx Active Meds: Active Medications Ceftriaxone Sodium 1 gm/ (Sodium Chloride) 20 mls @ 20 mls/10 min IV Q24HR [facility] Last Admin: 03/14/17 10:19 Dose: 20 mls/10 min Metoprolol Tartrate (Lopressor) 25 mg PO Q8H [facility] Last Admin: 03/14/17 12:56 Dose: Not Given Sodium Chloride (Sodium Chloride Flush Syringe 10 Ml) 10 ml IV PRN PRN PRN Reason: LINE FLUSH Physical Examination - Vital Signs Vital Signs: Vital Signs Temp Pulse Resp BP Pulse Ox 97.9 F 84 20 116/68 100 03/12/17 08:49 03/12/17 08:49 03/12/17 08:49 03/12/17 08:49 03/12/17 08:49 Results - Laboratory Findings CBC and BMP: 03/12/17 09:03 03/12/17 09:03 Abnormal Lab Findings: Abnormal Labs 03/12/17 03/12/17 03/12/17 09:03 09:03 09:25 Hgb 7.9 L Hct 26.1 L MCV 65 L MCH 20 L RDW 19.0 H Eos % (Auto) 4.4 H Creatinine 0.5 L Iron HDL Cholesterol Urine WBC (Auto) 43.0 H 03/13/17 03/14/17 09:05 06:38 Hgb Hct MCV MCH RDW Eos % (Auto) Creatinine Iron 9 L HDL Cholesterol 70 H Urine WBC (Auto)
--- NOTE | 2017-03-15 22:39 | Procedure Note ---
INDICATION: Equivocal stress test showing a small reversible anteroseptal wall defect. FINDINGS: 1. This is a good quality [address] 2. The total calcium score is zero indicating the absence of calcified atherosclerotic disease and a very low cardiovascular disease risk. 3. The left main originates from the left coronary cusp and is angiographically normal. 4. The LAD is a large caliber vessel that is angiographically normal. The first diagonal artery is a large caliber vessel that is angiographically normal. 5. The left circumflex artery is angiographically normal. 6. The right coronary artery originates from the right coronary cusp. Right coronary artery is a dominant vessel. Right coronary artery is angiographically normal. 7. The left ventricle is normal in size and systolic function with normal wall motion. 8. The left atrium is normal in size. The four pulmonary veins are visualized entering the left atrium with no evidence of left atrial appendage clot. 9. The right ventricle is normal in size and systolic function. 10. Right atrium is normal in size. 11. No evidence of interatrial septal defect. 12. The pulmonary artery is normal in size. 13. The visualized segments of the aorta are within normal limits. 14. There is no evidence of pericardial effusion. 15. The aortic valve is trileaflet. IMPRESSION: 1. This is normal 64 slice cardiac CTA with a zero calcium score indicating the absence of calcified atherosclerotic disease and a very low cardiovascular disease risk. 2. No evidence of extracardiac abnormalities detected by the overreading radiologist. JOB# [id number] PHANI/KARTHIK
--- NOTE | 2017-03-18 12:54 | Query- Chest Pain ---
Deaval Islas Jordyn Date: 03/18/17 Credit Operations Specialist/CDS:____Heydi / Jeanmarie Phone#:____[phone] Exercise your independent professional judgment when responding to query. Questions asked do not imply a particular answer is desired or expected. We greatly appreciate your clarification on this issue. Clinical Documentation States: 42 year old female was admitted on 03/12/17 The progress note (Dr. Cobb 03/13/17) states " --Acute coronary syndrome: abnormal stress test, cardiology recommended left heart catheterization Cardiology consultation for further evaluation and management, Continue aspirin and beta blockers JETT inhibitor as nitrates and statins --Chest pain; abnormal stress test, cardiology evaluation Possible heart cath tomorrow, CTA chest is negative for PE " The cardiology progress note (Dr. Ricci 03/14/17) states " Atypical chest pain Normal CT chest Normal LVEF by echo 12/2016 Abnormal MPI showing a small reversible anteroseptal wall defect concerning for ischemia vs artifact Normal coronary CTA " Please document the etiology of Chest Pain: [ ] Myocardial Infarction [ ] Pneumonia [ ] Mediastinitis [ ] Costochondritis [ ] Pulmonary Embolism [ ] Coronary Artery Disease [x ] GERD [ ] Other: [ ] Comment/Explanation: Present on Admission: [ x] Yes (Y) [ ] Clinically undeterminable (W) [ ] No(N) Please document response in your Progress Notes and/or Discharge Summary and indicate if the condition was present on admission. JOSEPH
--- NOTE | 2017-03-18 12:58 | Query- Nutrition ---
Dear ____Jordyn Date:____03/18/17 Bale Stacker/CDS:___Heydi / Jeanmarie Phone#:___[phone] Exercise your independent professional judgment when responding to query. Questions asked do not imply a particular answer is desired or expected. We greatly appreciate your clarification on this issue. Clinical Documentation States: 42 year old female was admitted on 03/12/17 The H&P (Dr. Callaway) states " This is a 41-year-old female presents to the ER for left-sided chest pain. Chest pain does not radiate to the back, arms or neck. " The Progress note (Dr. Cobb 03/13/17) states " Acute coronary syndrome, - Neurological symptom; possible TIA, Chest pain " Clinical Findings Show: BMI: 15.7 Please select the most appropriate option 3 [] Mild Malnutrition [] Mild - Moderate Malnutrition [x] Moderate - Severe Malnutrition [] Severe Malnutrition Serum Albumin 2.8 to 3.4 g/dl or Pre-albumin 5 to 17 mg/dl1,2 Inadequate nutritional intake1,2,3,4 NPO > 5 days Weight loss: 5% in 1 month or 7.5% in 3 months or 10% in 6 months1, 3,4 BMI 16 to 18.4 or Weight <90% of ideal body weight1,2,3,4 Serum Albumin < 2.8 g/ dl1,2 Lymphocytes < 1500/ L2 Inadequate nutritional intake3, high stress e.g. major trauma, sepsis,pancreatitis, marcelo etc. Decubitus ulcers1,2, , skin breakdown2, easy hair pluckability2 Weight <80% standard for height2 Triceps skin fold <3 mm2 Mid-arm muscle circumference <15 cm2 Creatinine-height index <60% standard2 [ ] Cachexia [ ] Emaciated w/Malnutrition [ ] Other: [ ] Unable to determine [ ] Comment/Explanation: Present on Admission: [x ] Yes (Y) [ ] Clinically undeterminable (W) [ ] No (N) Please also document response in your Progress Notes and/or Discharge Summary and indicate if the condition was present on admission. MTDD
== END 2017-03-14 15:38 | disposition home or self-care (01) | DRG 391 ==
LOC: ED 08:23 → 4A 15:05
PROVIDERS: ADMIT Internal Medicine; ATTEND Internal Medicine
DX: K21.9 Gastro-esophageal reflux disease without esophagitis (principal); E43 Unspecified severe protein-calorie malnutrition; I24.9 Acute ischemic heart disease, unspecified; G45.9 Transient cerebral ischemic attack, unspecified; N39.0 Urinary tract infection, site not specified; I25.10 Atherosclerotic heart disease of native coronary artery without angina pectoris; G43.909 Migraine, unspecified, not intractable, without status migrainosus; D64.9 Anemia, unspecified; F10.10 Alcohol abuse, uncomplicated; R07.89 Other chest pain; D50.9 Iron deficiency anemia, unspecified; J32.4 Chronic pansinusitis; Z88.5 Allergy status to narcotic agent
CPT/HCPCS: 36415; 70450; 70544; 70551; 71275; 75574; 78452; 80048; 80061; 81001; 81025; 82607; 82747; 83036; 83550; 84484; 85025; 93005; 93010; 93017; 93880; 96374; 96375; A9502; J0696; J1200; J2765; J2785; Q9967